=== PATIENT | female | born 1950 | race Caucasian/White ===

== ENCOUNTER → 2024-05-31 11:41 | Outpatient (REF) | payer MEDICARE, OTHER, SELFPAY | LOC: WDC 11:41 | DX: Z12.31 Encounter for screening mammogram for malignant neoplasm of breast (principal) | CPT/HCPCS: 77063; 77067 ==

== ENCOUNTER → 2025-07-01 12:58 | Outpatient (REF) | payer MEDICARE, OTHER, SELFPAY | LOC: WDC 12:58 | DX: Z12.31 Encounter for screening mammogram for malignant neoplasm of breast (principal) | CPT/HCPCS: 77063; 77067 ==